=== PATIENT | male | born 1965 | race African-American/Black ===

== ENCOUNTER 2023-10-13 06:41 | Inpatient (IN) | payer SELFPAY ==
[2023-10-13] MEDS: LACTATED RINGERS SOLUTION 1000 ML INFUS.BAG IV ONE ×2 (08:17→12:12)
[2023-10-13 08:28] LABS: BASO % 0.3 % (0-2.0); CHLORIDE 89 mmol/L (98-107); EOS % 0.2 % (0-4.5); HEMATOCRIT 47.9 % (35.4-49); MCH 30.1 pg (25.7-33.7); MCHC 33.3 g/dl (32.0-35.9); MEAN CELL VOLUME 90.5 fl (80-96); MEAN PLT VOLUME 9.4 fl (7.5-11.1); MONO % 9.2 % (3.8-10.2); NEUT % 66.3 % (42.8-82.8); PLATELET COUNT 182 10^3/uL (134-434); RDW 12.2 % (11.9-15.9); SODIUM 126 mmol/L (136-145); WHITE BLOOD COUNT 5.7 K/mm3 (4.0-10.0)
[2023-10-13 08:28] LABS: VENOUS O2 SATURATION 26.6 % (70-80); VENOUS PCO2 58.3 mmHg (38-52); VENOUS PH 7.298 (7.310-7.410)
[2023-10-13 08:31] LABS: BLOOD UREA NITROGEN 18.6 mg/dL (7-18); CALCIUM 10.2 mg/dL (8.5-10.1); CO2 28 mmol/L (21-32); MAGNESIUM 2.5 mg/dL (1.8-2.4)
[2023-10-13 08:32] LABS: ALBUMIN 4.2 g/dl (3.4-5.0)
[2023-10-13 08:34] LABS: CREATININE 1.7 mg/dL (0.55-1.3); SGPT/ALT 55 U/L (13-61)
[2023-10-13 08:35] LABS: BILIRUBIN,TOTAL 0.8 mg/dL (0.2-1); SGOT/AST 56 U/L (15-37)
[2023-10-13 08:36] LABS: TOT PROT 8.8 g/dl (6.4-8.2)
[2023-10-13 08:37] LABS: ALK PHOS 114 U/L (45-117)
[2023-10-13 08:39] LABS: ANION GAP 8 mmol/L (4-13); GLUCOSE,RANDOM 650 mg/dL (74-106); POTASSIUM 6.1 mmol/L (3.5-5.1)
[2023-10-13 09:56] LABS: URINE APPEARANCE CLEAR; URINE BILIRUBIN NEGATIVE (NEGATIVE); URINE COLOR YELLOW; URINE GLUCOSE (UA) 3+ (NEGATIVE); URINE KETONE 2+ (NEGATIVE); URINE LEUK ESTERASE NEGATIVE (NEGATIVE); URINE NITRITE NEGATIVE (NEGATIVE); URINE PROTEIN NEGATIVE (NEGATIVE); URINE UROBILINOGEN 0.2 mg/dL (0.2-1.0)
[2023-10-13 11:00] LABS: CHLORIDE 94 mmol/L (98-107); POTASSIUM 4.6 mmol/L (3.5-5.1); SODIUM 129 mmol/L (136-145)
[2023-10-13 11:01] LABS: CALCIUM 9.8 mg/dL (8.5-10.1)
[2023-10-13 11:02] LABS: ANION GAP 10 mmol/L (4-13); BLOOD UREA NITROGEN 16.7 mg/dL (7-18); CO2 26 mmol/L (21-32); MAGNESIUM 2.3 mg/dL (1.8-2.4)
[2023-10-13 11:05] LABS: CREATININE 1.3 mg/dL (0.55-1.3)
[2023-10-13 11:14] LABS: GLUCOSE,RANDOM 544 mg/dL (74-106)
[2023-10-13] MEDS ORDERED: INSULIN (NOVOLOG) ASPART 100 UNITS/ML 10ML VIAL ONE (13:31)
[2023-10-13] MEDS: INSULIN (LEVEMIR) 100 UNITS/ML UNITS SQ SCH (13:54)
[2023-10-13] MEDS: INSULIN REGULAR HUMAN 100 UNITS/ML *VIAL IVPUSH ONE (13:54)
[2023-10-13] MEDS: LACTATED RINGERS SOLUTION 1,000 ML/1,000 ML INFUS.BAG IV SCH (14:01)
[2023-10-13] MEDS: INSULIN ASPART SLIDING SCALE (NOVOLOG) 1 VIAL SQ SCH (16:50)
[2023-10-13] MEDS: INSULIN (NOVOLOG) ASPART 100 UNITS/ML 10ML VIAL SQ SCH (17:09)
[2023-10-13 21:06] VITALS: BMI 39.2
[2023-10-14 08:31] LABS: BASO % 0.5 % (0-2.0); EOS % 0.4 % (0-4.5); HEMATOCRIT 41.9 % (35.4-49); HEMOGLOBIN 13.9 GM/dL (11.7-16.9); LYMPH % 46.1 % (8-40); MCH 29.8 pg (25.7-33.7); MCHC 33.2 g/dl (32.0-35.9); MEAN CELL VOLUME 89.7 fl (80-96); MEAN PLT VOLUME 8.8 fl (7.5-11.1); MONO % 8.9 % (3.8-10.2); NEUT % 44.1 % (42.8-82.8); PLATELET COUNT 160 10^3/uL (134-434); RBC 4.67 M/mm3 (4.00-5.60); RDW 11.9 % (11.9-15.9); WHITE BLOOD COUNT 5.1 K/mm3 (4.0-10.0)
[2023-10-14] MEDS: ENOXAPARIN NA (PORCINE) 40 MG/0.4 ML DISP.SYRIN SQ SCH (09:25)
[2023-10-14 09:34] LABS: BLOOD UREA NITROGEN 14.3 mg/dL (7-18); CALCIUM 8.9 mg/dL (8.5-10.1); POTASSIUM 4.2 mmol/L (3.5-5.1)
[2023-10-14 09:35] LABS: CREATININE 0.9 mg/dL (0.55-1.3)
[2023-10-14] MEDS: INSULIN (NOVOLOG) ASPART 100 UNITS/ML 10ML VIAL SQ SCH (11:52)
[2023-10-14 14:59] VITALS: RESP 18
[2023-10-14] MEDS: INSULIN (LEVEMIR) 100 UNITS/ML UNITS SQ SCH (21:50)
[2023-10-14] MEDS ORDERED: INSULIN (LEVEMIR) 100 UNITS/ML UNITS SQ SCH ×3 (22:00)
[2023-10-15] MEDS: metFORMIN HCL 500 MG TABLET (FP) PO SCH (06:36)
[2023-10-15] MEDS: INSULIN (NOVOLOG MIX 70/30) 100 UNITS/ML MDV SQ SCH (06:36)
[2023-10-15 10:18] VITALS: BP 129/74; PULSE 62; TEMP 98.2
[2023-10-15] MEDS: INSULIN (NOVOLOG) ASPART 100 UNITS/ML 10ML VIAL SQ ONE (11:11)
== END 2023-10-15 14:47 | disposition home or self-care (01) | DRG 420 ==
LOC: JER 06:41 → JERBED 12:31 → OBSVTOIN 15:14 → J5S 18:16
PROVIDERS: ADMIT Internal Medicine
DX: E11.65 Type 2 diabetes mellitus with hyperglycemia (principal); E87.5 Hyperkalemia; E86.0 Dehydration
CPT/HCPCS: 36415; 80048; 80053; 81003; 82010; 82803; 82962; 83036; 83735; 85025; 87086; 93005; 93010; 99285-25; G0378